=== PATIENT | male | born 1975 | race Caucasian/White ===

== ENCOUNTER 2023-02-02 19:42 | Inpatient (IN) | payer MEDICAID ==
[~2023-02-02] VITALS: Ht 165.1 cm; Wt 49.0 kg
--- NOTE | 2023-02-02 19:43 | NUR ---
Dr Green evaluating patient
--- NOTE | 2023-02-02 19:43 | NUR ---
PT BROUGHT TO BED 9 VIA VERONICA DANIEL
[2023-02-02] MEDS ORDERED: IPRATROPIUM 0.02% 0.5 MG/2.5 ML NEBU INH ONE (19:45)
[2023-02-02] MEDS ORDERED: MAG SULF 2000 MG/WATER PREMIX 50 ML IV ONE (19:45)
[2023-02-02] MEDS ORDERED: ALBUTEROL 0.083% 2.5 MG/3 ML NEBU INH ONE (19:45)
[2023-02-02] MEDS ORDERED: methylPREDNISolone SS 125 MG/2 ML VIAL IVP ONE (19:45)
--- NOTE | 2023-02-02 19:50 | NUR ---
Lab by bedside
[2023-02-02 19:51] VITALS: BP 148/78
[2023-02-02 20:00] LABS: BASOPHILS # (AUTO) 0.1 K/uL (0.00-0.22); BASOPHILS % (AUTO) 0.5 % (0.0-2.0); EOSINOPHILS # (AUTO) 0.8 K/uL (0-0.4); EOSINOPHILS % (AUTO) 5.2 % (0.0-4.0); HEMATOCRIT 40.4 % (36-52); HEMOGLOBIN 13.1 g/dL (12.0-18.0); LYMPHOCYTES # (AUTO) 3.7 K/uL (2.0-11.5); MEAN CORPUSCULAR HEMOGLOBIN 30 pg (27-31); MEAN CORPUSCULAR HGB CONC 32 g/dL (33-37); MEAN CORPUSCULAR VOLUME 93.2 fL (80-94); MONOCYTES # (AUTO) 1.2 K/uL (0.8-1.0); NEUTROPHILS # (AUTO) 9.6 K/uL (1.8-7.7); NEUTROPHILS % (AUTO) 62.3 % (42.2-75.2); PLATELET COUNT (AUTO) 393 K/uL (140-450); RED BLOOD CELL COUNT(AUTO) 4.34 MIL/uL (4.20-6.10); RED CELL DISTRIBUTION WIDTH 14.5 % (11.6-13.7); WHITE BLOOD COUNT (AUTO) 15.4 K/uL (4.8-10.8)
--- NOTE | 2023-02-02 20:05 | NUR ---
RT by bedside
[2023-02-02 20:21] LABS: ALBUMIN 3.4 g/dL (3.4-5.0); ANION GAP 14.9 (8-16); CARBON DIOXIDE 26.7 mmol/L (21-32); CREATININE 2.3 mg/dL (0.6-1.3); POTASSIUM 3.6 mmol/L (3.5-5.1); TOTAL BILIRUBIN 0.2 mg/dL (0.0-1.0)
[2023-02-02] MEDS ORDERED: NACL 0.9% 2,000 ML IV SCH (20:35)
[2023-02-02] MEDS ORDERED: cefTRIAXone 1,000 MG VIAL ONE (21:22)
[2023-02-02] MEDS: NACL 0.9% 1,000 ML IV SCH (22:30)
[2023-02-02] MEDS ORDERED: MAG SULF 2000 MG/WATER PREMIX 50 ML IV PRN (22:35)
[2023-02-02] MEDS ORDERED: DOCUSATE SODIUM 100 MG GELCAP PO PRN (22:35)
[2023-02-02] MEDS ORDERED: LORazepam 2 MG/ML VIAL IVP PRN (22:35)
[2023-02-02] MEDS ORDERED: ACETAMINOPHEN 325 MG TAB PO PRN (22:35)
[2023-02-02] MEDS ORDERED: ZOLPIDEM 10 MG TAB PO PRN (22:35)
[2023-02-02] MEDS ORDERED: MORPHINE SULFATE 2 MG/ML SYR IVP PRN (22:35)
[2023-02-02] MEDS ORDERED: POTASSIUM CHLORIDE 10 MEQ TABER PO PRN (22:35)
[2023-02-02] MEDS ORDERED: ONDANSETRON 4 MG/2 ML VIAL IVP PRN (22:35)
[2023-02-03] VITALS (8 sets, daily range): BP systolic 99–134; BP diastolic 65–86
[2023-02-03] MEDS ORDERED: MONT-72 PO (00:39)
[2023-02-03] MEDS ORDERED: cefTRIAXone 1,000 MG VIAL ONE (00:49)
[2023-02-03] MEDS: ALBUTEROL 0.083% 2.5 MG/3 ML NEBU INH SCH ×4 (00:52→19:16)
[2023-02-03] MEDS ORDERED: AZITHROMYCIN 500 MG INJ VIAL IV ONE (00:54)
[2023-02-03] MEDS: AZITHROMYCIN 500 MG in DEXTROSE 5% 250 ML IV SCH ×2 (00:56→22:35)
--- NOTE | 2023-02-03 00:57 | NUR ---
Leatha de paz in ED - 02/03/23 at 0106 by [id number] CHRIS Feliciano by bedside to place central line
--- NOTE | 2023-02-03 01:05 | NUR ---
CALL FROM ER, REPORT RECEIVED FROM CHRISTIAN FOR NEW PATIENT BEING ADMITTED TO ICU
--- NOTE | 2023-02-03 01:09 | NUR ---
Report given to Linda HUNTER
--- NOTE | 2023-02-03 01:30 | NUR ---
TRANSFER OF CARE FROM ER, REPORT RECEIVED FROM CHRISTIAN. PATIENT RECEIVED AWAKE, ALERT, AND SITTING UP ON GURNEY, DOES NOT APPEAR TO BE IN DISTRESS. PATIENT WTH BIPAP IN PLACE AT TIME OF ADMISSION. PATIENT HAS 20G LEFT FOREARM. AND IS RECEIVING THE FOLLOWING MEDICATIONS: AZITHROMYCIN AND NORMAL SALINE WILL CONTINUE TO MONITOR PATIENT FOR ANY CHANGES IN CONDITION AND NOTIFY MD APPROPRIATE
[2023-02-03] MEDS ORDERED: methylPREDNISolone SS 40 MG/ML VIAL ONE (04:55)
[2023-02-03] MEDS ORDERED: methylPREDNISolone SS 40 MG in WATER STERILE 1 ML IV SCH (05:00)
[2023-02-03] MEDS ORDERED: NOREPINEPHRINE 4 MG/4 ML VIAL IV ONE (06:03)
[2023-02-03 07:10] LABS: BASOPHILS % (AUTO) 0.1 % (0.0-2.0); EOSINOPHILS % (AUTO) 0.1 % (0.0-4.0); HEMATOCRIT 32.9 % (36-52); HEMOGLOBIN 10.9 g/dL (12.0-18.0); LYMPHOCYTES # (AUTO) 0.6 K/uL (2.0-11.5); LYMPHOCYTES % (AUTO) 5.5 % (20.5-51.1); MEAN CORPUSCULAR HEMOGLOBIN 31 pg (27-31); MEAN CORPUSCULAR HGB CONC 33 g/dL (33-37); MEAN CORPUSCULAR VOLUME 93.3 fL (80-94); MONOCYTES # (AUTO) 0.1 K/uL (0.8-1.0); MONOCYTES % (AUTO) 0.9 % (1.7-9.3); NEUTROPHILS # (AUTO) 9.8 K/uL (1.8-7.7); NEUTROPHILS % (AUTO) 93.4 % (42.2-75.2); PLATELET COUNT (AUTO) 337 K/uL (140-450); RED BLOOD CELL COUNT(AUTO) 3.53 MIL/uL (4.20-6.10); RED CELL DISTRIBUTION WIDTH 13.9 % (11.6-13.7); WHITE BLOOD COUNT (AUTO) 10.5 K/uL (4.8-10.8)
[2023-02-03 07:22] LABS: ANION GAP 15.9 (8-16); CARBON DIOXIDE 21.7 mmol/L (21-32); CREATININE 2.1 mg/dL (0.6-1.3); POTASSIUM 4.6 mmol/L (3.5-5.1)
--- NOTE | 2023-02-03 07:24 | NUR ---
TRANSFER OF CARE TO DAYSHIFT, REPORT ENDORSED TO JAYY
--- NOTE | 2023-02-03 07:35 | NUR ---
RECEIVED REPORT FROM PHOTOTYPESETTER OPERATOR NURSE. PATIENT LYING DOWN IN BED SLEEPING, AROUSABLE BY VOICE. NO DISTRESS NOTED. DENIES PAIN. ON NC 4L/MIN. AAOX4, CALM, COOPERATIVE, SKIN INTACT. IV SITE INTACT, PATENT AND INFUSING IVF PER MD ORDERS. REVIEWED PLAN OF CARE WITH PATIENT. REINFORCEMENT NEEDED. SAFETY MEASURES IN PLACE, CALL LIGHT WITHIN REACH. WILL CONTINUE TO MONITOR.
[2023-02-03] MEDS: NACL 0.9% 1,000 ML IV SCH ×2 (08:35→13:00)
--- NOTE | 2023-02-03 08:56 | NUR ---
PATIENT HAS BEEN SCREENED AND CATEGORIZED HIGH NUTRITION RISK. PATIENT WILL BE SEEN WITHIN 1-2 DAYS OF ADMISSION. REVIEWED BY LOAN ESCOBEDO RD
--- NOTE | 2023-02-03 10:10 | NUR ---
PATIENT TALKING ON HIS CELLPHONE, NO DISTRESS NOTED. WILL CONTINUE TO MONITOR.
[2023-02-03] MEDS ORDERED: ZOLPIDEM 5 MG TAB PO PRN (10:50)
[2023-02-03] MEDS: guaiFENesin/CODEINE 100/10MG 5 ML UDC PO PRN ×2 (11:10→17:59)
[2023-02-03] MEDS ORDERED: methylPREDNISolone SS 40 MG/ML VIAL IVP SCH (13:00)
[2023-02-03] MEDS: methylPREDNISolone SS 125 MG/2 ML VIAL IVP SCH ×2 (13:00→20:37)
--- NOTE | 2023-02-03 13:06 | NUR ---
SCHEDULED MEDICATIONS DUE GIVEN. WILL CONTINUE TO MONITOR.
--- NOTE | 2023-02-03 14:17 | NUR ---
DISCHARGE PLANNING ADMITTED A 47 YEAR OLD PATIENT 02/02 FOR WORSENING SOB WITH HX OF HIV AND ASTHMA.CXR SUGGESTIVE OF COPD.WBC TRENDING DOWN FROM 15.4-10.5. ALERT BUT STILL TACHYCARDIC. ON 2 L NC .CONTINUE ABX AZITHROMYCIN.PULMO TO FOLLOW. DC PLAN HOME IF PATIENT RESPONDS TO TREATMENT.
--- NOTE | 2023-02-03 14:20 | NUR ---
DC PLANNING ASSESSMENT COMPLETE PLEASE REFER TO ASSESSMENT FOR ADDITIONAL DETAILS MET WITH PT AT BEDSIDE TO COMPLETE ASSESSMENT. PT PRIMARILY GUAMANIAN SPEAKING THEREFORE, PROPERTY DISPOSAL MANAGER UTILIZED, FRANDY [id number] PT DECLINED TO ADD EMERGENCY CONTACTS PT IS A 47 YR OLD MALE ADMITTED TO [facility] FROM HOME WITH DX OF SEPSIS. PT HAS PAST MEDICAL HX OF HIV AND ASTHMA. PT REPORTS CHRONIC HX OF SUBSTANCE USE, SUBSTANCE OF USE; METH. PT REPROTS ON AND OFF USE FOR THE LAST 4 YEARS. PT REPORTS HE LAST SMOKED METH 1 MONTH AGO, BUT FOUND THAT HE NO LONGER FELT WHAT HE USE TO SO HER RESORTED TO " DOING LINES". PT REPORTS HIS LAST LINE WAS ROUGHLY 2 WEEKS AGO. PT REPORTS LIMITED FAMILY SUPPORT [place] HOWEVER, REPROTS HE IS IN CONSTANT CONNECTION WITH HIS FAMILY IN [place], VIA TELEPHONE PT REPORTS BEING INDEPENDENT IN ALL ACTIVITIES AND DENIES USE OF DME. PT RESIDES IN SECOND FLOOR APT, WITH HIS FRIEND AT THE ADDRESS LISTED ON FILE. PT REFERRED TO MALOU, ENCOURAGED PATIENT TO FOLLOW UP AND PROVIDE ALL REQUESTED INFORMATION TO MALOU MAI IN ORDER TO ACQUIRE FULL SCOPE [facility]. PT REPORTS DC PLAN IS TO RETURN HOME, ONCE MEDICALLY STABLE. Addendum: 02/03/23 at 1423 by Rafia BAER Amended: Links added.
--- NOTE | 2023-02-03 18:01 | NUR ---
COUGHING EPISODE, GUAIFENESIN-CODEINE PRN COUGH SYRUP GIVEN AT THIS TIME. WILL CONTINUE TO MONITOR.
[2023-02-03] MEDS ORDERED: BICT1TAB PO (18:53)
[2023-02-03] MEDS: BUDESONIDE 0.5 MG/2 ML NEBU INH SCH (19:16)
--- NOTE | 2023-02-03 19:20 | NUR ---
RECEIVED PATIENT SITTING ON THE BED; ALERT AND ORIENTED;BREATHING EVEN AND UNLABORED AT 2 LITERS 02/NC S02 97%. CARDIOSCOPE SHOWS ON SINUS RHYTHM HR 89/MIN NO ARRHYTHMIAS SEEN. ABDOMEN IS SOFT, ACTIVE BOWEL SOUNDS.
[2023-02-03] MEDS ORDERED: NON-FORMULARY ITEM (Bictegrav/Emtricit/Tenofov Ala (Biktarvy 50-200-25 mg Tablet) 1 EACH) PO SCH (20:00)
--- NOTE | 2023-02-03 20:33 | NUR ---
FOR TRANSFER TO TELE UNIT; REPORT GIVEN TO ELSA RODRÍGUEZ.
--- NOTE | 2023-02-03 20:55 | NUR ---
TRANSFERRED PER BED TO TELE ROOM 112B IN FAIR CONDITION; ENDORSED TO ELSA RODRÍGUEZ FOR CONTINUITY CARE.
--- NOTE | 2023-02-03 20:55 | NUR ---
RECEIVED PATIENT FROM ICU VIA GURNEY WITH O2 AT 2L NC. NO SOB NOTED. RESPIRATION EVEN UNLABORED. SKIN WARM AND DRY TO TOUCH. NO COMPLAINTS OF PAIN AT THIS TIME. IV SITE TO LEFT AC INFUSING NS 60 ML/HR. CALL LIGHT WITHIN REACH. SAFETY MEASURES IN PLACE.
--- NOTE | 2023-02-03 22:00 | NUR ---
REPORT GIVEN TO YUDY HUNTER FOR CONTINUITY OF CARE.
--- NOTE | 2023-02-03 22:10 | NUR ---
RECEIVED REPORT FROM ANNE HUNTER FOR CONTINUITY OF CARE.PT IS STABLE.
--- NOTE | 2023-02-03 22:57 | NUR ---
SCHEDULED ANTIBIOTICS GIVEN. PT TOLERATED WELL. WILL CONTINUE TO MONITOR.
[2023-02-04] VITALS: BP 141/82
[2023-02-04] MEDS: ALBUTEROL 0.083% 2.5 MG/3 ML NEBU INH SCH ×4 (01:09→20:02)
[2023-02-04 04:00] VITALS: BP 142/67
[2023-02-04] MEDS: NACL 0.9% 1,000 ML IV SCH ×3 (04:37→20:44)
[2023-02-04] MEDS: methylPREDNISolone SS 125 MG/2 ML VIAL IVP SCH ×3 (04:44→20:43)
[2023-02-04] MEDS: guaiFENesin/CODEINE 100/10MG 5 ML UDC PO PRN ×2 (04:46→23:53)
--- NOTE | 2023-02-04 06:40 | NUR ---
PT IS STABLE. NO ACUTE EVENTS THROUGHOUT THE NIGHT.ALL NEEDS MET. NO S/SX OF DISTRESS AT THE MOMENT. ALL PRECAUTIONS IN PLACE. CALL LIGHT WITHIN REACH. WILL ENDORSE TO DAY SHIFT NURSE.
--- NOTE | 2023-02-04 07:06 | NUR ---
receive the patinet from night baker rn in rm 112B aox4 admitting diagnosis of sepsis , will continue to monitor
[2023-02-04 07:34] LABS: BASOPHILS % (AUTO) 0.1 % (0.0-2.0); HEMATOCRIT 32.3 % (36-52); HEMOGLOBIN 10.4 g/dL (12.0-18.0); LYMPHOCYTES # (AUTO) 0.5 K/uL (2.0-11.5); LYMPHOCYTES % (AUTO) 2.9 % (20.5-51.1); MEAN CORPUSCULAR HEMOGLOBIN 30 pg (27-31); MEAN CORPUSCULAR HGB CONC 32 g/dL (33-37); MONOCYTES # (AUTO) 0.5 K/uL (0.8-1.0); MONOCYTES % (AUTO) 2.9 % (1.7-9.3); NEUTROPHILS # (AUTO) 17.1 K/uL (1.8-7.7); NEUTROPHILS % (AUTO) 94.1 % (42.2-75.2); PLATELET COUNT (AUTO) 367 K/uL (140-450); RED BLOOD CELL COUNT(AUTO) 3.43 MIL/uL (4.20-6.10); RED CELL DISTRIBUTION WIDTH 13.8 % (11.6-13.7); WHITE BLOOD COUNT (AUTO) 18.2 K/uL (4.8-10.8)
[2023-02-04] MEDS: BUDESONIDE 0.5 MG/2 ML NEBU INH SCH ×2 (07:55→20:02)
[2023-02-04 07:57] LABS: ANION GAP 13.5 (8-16); CARBON DIOXIDE 26.6 mmol/L (21-32); CREATININE 1.7 mg/dL (0.6-1.3); POTASSIUM 5.1 mmol/L (3.5-5.1)
[2023-02-04 08:00] VITALS: BP 128/80
[2023-02-04 12:00] VITALS: BP 115/76
[2023-02-04 16:00] VITALS: BP 119/73
--- NOTE | 2023-02-04 17:01 | NUR ---
02/04/23 RD INITIAL ASSESSMENT COMPLETED PLEASE REFER TO NUTRITION ASSESSMENT UNDER CARE ACTIVITY FOR ESTIMATED NUTRITIONAL NEEDS. 1. CONTINUE REGULAR DIET TOLERATED 2. MONITOR GI SYMPTOMS, PO INTAKE, AND NUTRITION RELATED LAB VALUES 3. RD TO FOLLOW-UP 7 DAYS, LOW RISK REVIEWED BY LOAN ESCOBEDO RD
[2023-02-04] MEDS ORDERED: HYDROcodone/APAP 7.5/325 MG 1 TAB PO PRN (17:40)
[2023-02-04] MEDS ORDERED: ONDANSETRON 4 MG/2 ML VIAL IVP PRN (17:40)
[2023-02-04] MEDS ORDERED: ACETAMINOPHEN 325 MG TAB PO PRN (17:40)
[2023-02-04 18:21] LABS: PROTHROMBIN TIME 10.5 secs (10.8-13.4)
[2023-02-04 18:33] LABS: CHOL/HDL RATIO 2.3 (1-4.5); FREE T4 (FREE THYROXINE) 1.22 ng/dL (0.76-1.46); PHOSPHORUS 1.9 mg/dL (2.5-4.9); THYROID STIMULATING HORMONE 0.07 uIU/mL (0.34-3.74)
--- NOTE | 2023-02-04 19:07 | NUR ---
will endorse to night time babysitter rn for continuity of care , still awaiting for HIV medications from home
--- NOTE | 2023-02-04 19:10 | NUR ---
RECEIVED REPORT FROM DAY SHIFT RN FOR CONTINUITY OF CARE. PT IS AWAKE AND ALERT RESTING IN BED. NOT IN ANY DISTRESS. PT IS ON NC 4L SATING 96%. POC DISCUSSED. WILL CONTINUE TO MONITOR THE PT.
[2023-02-04 20:00] VITALS: BP 116/71
--- NOTE | 2023-02-04 20:09 | NUR ---
SPO2 98%. TITRATED O2 FROM 2L NC TO ROOM AIR. PT TOLERATING WELL AT THIS TIME. SPO2 94% -95%. RN NOTIFIED TO MONITOR PT.
[2023-02-04] MEDS: DOCUSATE SODIUM 100 MG GELCAP PO SCH (20:43)
[2023-02-04] MEDS: SULFAMETH/TRIMETH DS 800/160MG 1 TAB PO SCH (20:43)
[2023-02-04] MEDS: AZITHROMYCIN 500 MG in DEXTROSE 5% 250 ML IV SCH (22:57)
--- NOTE | 2023-02-04 23:30 | NUR ---
PT HAD A COUCHING EPISODE AND STARTED TO DESATURATE TO 80S. NC 4L WAS PUT BACK ON. PT IS NOW SATING 93%. WILL CONTINUE TO MONITOR THE PT. WILL PROVIDE PT WITH COUCHING MEDICATION.
[2023-02-05] VITALS: BP 128/68
[2023-02-05 01:57] LABS: BARBITURATE, URINE NEGATIVE ng/ml (NEG <=200); BENZODIAZEPINE, URINE NEGATIVE ng/mL (NEG <=200); CANNABINOID, URINE NEGATIVE ng/mL (NEG <=50); COCAINE, URINE NEGATIVE ng/mL (NEG <=300); OPIATE, URINE POSITIVE ng/mL (NEG <=2000); PHENCYCLIDINE SCREEN,URINE NEGATIVE ng/mL (NEG <=25)
[2023-02-05 01:59] LABS: APPEARANCE,URINE CLEAR (CLEAR); BILIRUBIN,URINE NEGATIVE (NEGATIVE); BLOOD, URINE NEGATIVE (NEGATIVE); COLOR,URINE YELLOW (YELLOW); LEUKOCYTE ESTERASE ,URINE NEGATIVE (NEGATIVE); NITRITE, URINE NEGATIVE (NEGATIVE); UGLUCOSE 1+ (NEGATIVE)
[2023-02-05] MEDS: ALBUTEROL 0.083% 2.5 MG/3 ML NEBU INH SCH ×4 (03:06→19:00)
[2023-02-05 04:00] VITALS: BP 112/67
[2023-02-05] MEDS: methylPREDNISolone SS 125 MG/2 ML VIAL IVP SCH ×3 (05:25→20:37)
--- NOTE | 2023-02-05 05:30 | NUR ---
SCHEDULE SOLU-MEDROL GIVEN. PT IS ON NC 2L SATING 95%. WILL CONTINUE TO MONITOR THE PT.
[2023-02-05 06:50] LABS: HEMATOCRIT 30.9 % (36-52); HEMOGLOBIN 10.1 g/dL (12.0-18.0); LYMPHOCYTES # (AUTO) 0.6 K/uL (2.0-11.5); LYMPHOCYTES % (AUTO) 3.4 % (20.5-51.1); MEAN CORPUSCULAR HEMOGLOBIN 30 pg (27-31); MEAN CORPUSCULAR HGB CONC 33 g/dL (33-37); MEAN CORPUSCULAR VOLUME 92.6 fL (80-94); MONOCYTES # (AUTO) 0.5 K/uL (0.8-1.0); MONOCYTES % (AUTO) 2.7 % (1.7-9.3); NEUTROPHILS # (AUTO) 16.4 K/uL (1.8-7.7); NEUTROPHILS % (AUTO) 93.9 % (42.2-75.2); PLATELET COUNT (AUTO) 394 K/uL (140-450); RED BLOOD CELL COUNT(AUTO) 3.34 MIL/uL (4.20-6.10); RED CELL DISTRIBUTION WIDTH 14.2 % (11.6-13.7); WHITE BLOOD COUNT (AUTO) 17.4 K/uL (4.8-10.8)
--- NOTE | 2023-02-05 07:13 | NUR ---
ENDORSED PT TO DAY SHIFT RN FOR CONTINUITY OF CARE. PT IS STABLE.
--- NOTE | 2023-02-05 07:20 | NUR ---
receive the patient from the welding machine operator electro gas rn in rm 112B aox4 ambulatory with admitting diagnosis of sepsis . will continue to monitor
[2023-02-05] MEDS: BUDESONIDE 0.5 MG/2 ML NEBU INH SCH ×2 (07:32→19:30)
[2023-02-05 08:00] VITALS: BP 113/64
[2023-02-05 08:04] LABS: ANION GAP 12.5 (8-16); CREATININE 1.5 mg/dL (0.6-1.3); POTASSIUM 4.5 mmol/L (3.5-5.1)
[2023-02-05] MEDS: PANTOPRAZOLE 40 MG INJ VIAL IVP SCH (08:50)
[2023-02-05] MEDS: DOCUSATE SODIUM 100 MG GELCAP PO SCH ×2 (08:50→20:37)
--- NOTE | 2023-02-05 10:33 | NUR ---
collected sputum specimen for culture to the laboratory .
[2023-02-05] MEDS: guaiFENesin/CODEINE 100/10MG 5 ML UDC PO PRN (11:03)
[2023-02-05 12:00] VITALS: BP 111/70
[2023-02-05 16:00] VITALS: BP 119/71
--- NOTE | 2023-02-05 18:32 | NUR ---
will endorse to shift lab technician rn for continuity of care
--- NOTE | 2023-02-05 19:30 | NUR ---
RECEIVED REPORT FROM DAY SHIFT RN FOR CONTINUITY OF CARE. PT IS AWAKE AND ALERT. PT NOT IN ANY DISTRESS. RESTING IN BED. POC DISCUSSED. WILL CONTINUE TO MONITOR THE PT.
[2023-02-05 20:00] VITALS: BP 134/88
[2023-02-05] MEDS: NACL 0.9% 1,000 ML IV SCH (22:07)
--- NOTE | 2023-02-05 22:14 | NUR ---
SCHEDULE MEDICATIONS GIVEN. NO ADVERSE REACTION NOTED. WILL CONTINUE TO MONITOR THE PT.
[2023-02-05] MEDS: AZITHROMYCIN 500 MG in DEXTROSE 5% 250 ML IV SCH (22:51)
[2023-02-06] VITALS: BP 126/86
--- NOTE | 2023-02-06 00:35 | NUR ---
PT IS SLEEPING COMFORTABLY IN BED. NOT IN ANY DISTRESS. BREATHING EVEN AND UNLABORED. WILL CONTINUE TO MONITOR THE PT.
[2023-02-06] MEDS: ALBUTEROL 0.083% 2.5 MG/3 ML NEBU INH SCH ×4 (01:00→21:18)
[2023-02-06 04:00] VITALS: BP 117/78
--- NOTE | 2023-02-06 04:00 | NUR ---
VITAL SIGNS TAKEN AND STABLE. PT HAS NO COMPLAINS AT THIS TIME. WILL CONTINUE TO MONITOR.
[2023-02-06] MEDS: methylPREDNISolone SS 125 MG/2 ML VIAL IVP SCH ×3 (05:11→20:16)
[2023-02-06 07:02] LABS: HEMATOCRIT 29.7 % (36-52); HEMOGLOBIN 9.7 g/dL (12.0-18.0); LYMPHOCYTES # (AUTO) 0.8 K/uL (2.0-11.5); LYMPHOCYTES % (AUTO) 5.4 % (20.5-51.1); MEAN CORPUSCULAR HEMOGLOBIN 30 pg (27-31); MEAN CORPUSCULAR HGB CONC 33 g/dL (33-37); MEAN CORPUSCULAR VOLUME 93.3 fL (80-94); MONOCYTES # (AUTO) 0.4 K/uL (0.8-1.0); NEUTROPHILS # (AUTO) 13.2 K/uL (1.8-7.7); NEUTROPHILS % (AUTO) 91.6 % (42.2-75.2); PLATELET COUNT (AUTO) 377 K/uL (140-450); RED BLOOD CELL COUNT(AUTO) 3.18 MIL/uL (4.20-6.10); RED CELL DISTRIBUTION WIDTH 14.2 % (11.6-13.7); WHITE BLOOD COUNT (AUTO) 14.4 K/uL (4.8-10.8)
--- NOTE | 2023-02-06 07:03 | NUR ---
receive the patient from the lieutenant shift supervisor rn in rm 112B aox4 ambulatory with admitting diagnosis of sepsis . will continue to monitor
[2023-02-06 07:09] LABS: ANION GAP 10.1 (8-16); CARBON DIOXIDE 29.3 mmol/L (21-32); CREATININE 1.5 mg/dL (0.6-1.3); POTASSIUM 4.4 mmol/L (3.5-5.1)
--- NOTE | 2023-02-06 07:23 | NUR ---
ENDORSED PT TO DAY SHIFT RN FOR CONTINUITY OF CARE. PT IS STABLE.
[2023-02-06 08:00] VITALS: BP 117/78
[2023-02-06] MEDS: BUDESONIDE 0.5 MG/2 ML NEBU INH SCH ×2 (08:05→21:18)
[2023-02-06] MEDS: DOCUSATE SODIUM 100 MG GELCAP PO SCH ×2 (08:38→20:15)
[2023-02-06] MEDS: PANTOPRAZOLE 40 MG INJ VIAL IVP SCH (08:39)
--- NOTE | 2023-02-06 09:42 | NUR ---
still refusing medication . grand daughter made aware Addendum: 02/06/23 at 1728 by Agency Clara HUNTER RN wrong patient
[2023-02-06] MEDS: guaiFENesin/CODEINE 100/10MG 5 ML UDC PO PRN (11:50)
[2023-02-06 12:00] VITALS: BP 131/80
[2023-02-06 16:00] VITALS: BP 112/67
--- NOTE | 2023-02-06 16:40 | NUR ---
submitted MRSA sample to the laboratory for culture
--- NOTE | 2023-02-06 19:30 | NUR ---
RECEIVED REPORT FROM DAY SHIFT NURSE GIANA FOR CONTINUITY OF CARE. PATIENT IS A&O X4. PATIENT IS ON 4L NC, BREATHING IS NORMAL WITH SYMMETRICAL RISE AND FALL OF CHEST. IV IS A RFA 20G, RUNNING NS 50. PATIENT IS WATCHING TV, SITTING UP IN HIGH-FOWLERS. BED IS IN LOWEST POSITION WITH WHEELS LOCKED AND CALL LIGHT IN PLACE. WILL CONTINUE TO OBSERVE PATIENT.
[2023-02-06 20:00] VITALS: BP 120/74
[2023-02-06] MEDS: SULFAMETH/TRIMETH DS 800/160MG 1 TAB PO SCH (20:15)
[2023-02-06] MEDS: AZITHROMYCIN 500 MG in DEXTROSE 5% 250 ML IV SCH (22:20)
[2023-02-06] MEDS: NACL 0.9% 1,000 ML IV SCH (22:21)
[2023-02-07] MEDS: ALBUTEROL 0.083% 2.5 MG/3 ML NEBU INH SCH ×3 (00:38→12:16)
[2023-02-07 04:00] VITALS: BP 111/63
--- NOTE | 2023-02-07 04:00 | NUR ---
PATIENT SLEPT OFF AND ON THROUGHOUT THE NIGHT. BREATHING IS NORMAL WITH SYMMETRICAL RISE AND FALL OF CHEST. IV IS STILL RUNNING NS AT 50. WILL CONTINUE TO OBSERVE PATIENT.
[2023-02-07] MEDS: methylPREDNISolone SS 125 MG/2 ML VIAL IVP SCH (04:11)
--- NOTE | 2023-02-07 07:14 | NUR ---
receive the patient from the risk officer rn in RM 112B aox4 ambulatory . with admitting diagnosis of sepsis . will contniue to monitor
--- NOTE | 2023-02-07 07:41 | NUR ---
ENDORSED TO DAY SHIFT NURSE WILBERT FOR CONTINUITY OF CARE. PATIENT IS STABLE.
[2023-02-07] MEDS: BUDESONIDE 0.5 MG/2 ML NEBU INH SCH (08:21)
[2023-02-07 08:55] LABS: HEMATOCRIT 31.8 % (36-52); HEMOGLOBIN 10.3 g/dL (12.0-18.0); LYMPHOCYTES # (AUTO) 0.6 K/uL (2.0-11.5); MEAN CORPUSCULAR HEMOGLOBIN 30 pg (27-31); MEAN CORPUSCULAR HGB CONC 32 g/dL (33-37); MONOCYTES # (AUTO) 0.4 K/uL (0.8-1.0); NEUTROPHILS # (AUTO) 11.1 K/uL (1.8-7.7); PLATELET COUNT (AUTO) 396 K/uL (140-450); RED BLOOD CELL COUNT(AUTO) 3.41 MIL/uL (4.20-6.10); RED CELL DISTRIBUTION WIDTH 13.5 % (11.6-13.7)
[2023-02-07] MEDS: DOCUSATE SODIUM 100 MG GELCAP PO SCH (09:00)
[2023-02-07] MEDS: PANTOPRAZOLE 40 MG INJ VIAL IVP SCH (09:00)
[2023-02-07 09:02] LABS: ANION GAP 11.5 (8-16); CARBON DIOXIDE 29.2 mmol/L (21-32); CREATININE 1.5 mg/dL (0.6-1.3); POTASSIUM 3.7 mmol/L (3.5-5.1)
--- NOTE | 2023-02-07 09:13 | NUR ---
will endorse to RN Frank fro change of assignment
--- NOTE | 2023-02-07 09:20 | NUR ---
recieved patient from nurse Hayden for change of assignment. Patient seen on bed AOx4.
[2023-02-07 09:43] LABS: LYMPHOCYTES % (AUTO) 4.9 % (20.5-51.1); NEUTROPHILS % (AUTO) 92.1 % (42.2-75.2)
[2023-02-07] MEDS ORDERED: ALBU0.0912 IH (11:27)
[2023-02-07] MEDS ORDERED: CEPH-588 PO (11:27)
[2023-02-07] MEDS ORDERED: SULF-59 PO (11:27)
[2023-02-07 14:48] VITALS: BP 111/63
== END 2023-02-07 15:50 | disposition home or self-care (01) | DRG 720 ==
LOC: MED 19:42 → MTU 22:32 → MIC 02-03 00:40 → MTU 02-03 21:00
PROVIDERS: ADMIT Family Medicine; ATTEND Family Medicine
PROC: 5A09357 Assistance with Respiratory Ventilation, Less than 24 Consecutive Hours, Continuous Positive Airway Pressure (ICD-10-PCS; principal; 2023-02-03)
DX: A41.9 Sepsis, unspecified organism (principal); N17.0 Acute kidney failure with tubular necrosis; J96.21 Acute and chronic respiratory failure with hypoxia; E87.20 Acidosis, unspecified; J18.9 Pneumonia, unspecified organism; E87.1 Hypo-osmolality and hyponatremia; E83.51 Hypocalcemia; J45.901 Unspecified asthma with (acute) exacerbation; J44.0 Chronic obstructive pulmonary disease with (acute) lower respiratory infection; J44.1 Chronic obstructive pulmonary disease with (acute) exacerbation; R73.9 Hyperglycemia, unspecified; D64.9 Anemia, unspecified; Z20.822 Contact with and (suspected) exposure to COVID-19; Z21 Asymptomatic human immunodeficiency virus [HIV] infection status
CPT/HCPCS: 36415; 71045; 80048; 80053; 80305; 81003; 82150; 82948; 83036; 83605; 83690; 83735; 83880; 84100; 84439; 84443; 84484; 85025; 85610; 85730; 86360; 87040; 87070; 87081; 87205; 93005; 94640; 94644; 96361; 96365; 96375; 99291; C9113; J0456; J0696; J2270; J2920; J2930; J3475; J3490; J7060; J7613; J7626; J7644; Q0092